=== PATIENT | male | born 1950 | race Caucasian/White ===

== ENCOUNTER → 2023-06-22 | Outpatient (CLI) | payer MEDICARE, SELFPAY ==
--- NOTE | 2023-06-22 12:00 | LES_PTH ---
PATIENT: JACKSON ANNA LOC: [facility] U#:[id number] AGE/SX: 73/M ROOM: RE06/22/[address]: KIRIT MARY MD : 1950 BED: DIS: 06/22/2023 SPEC #: [id number] RECD: 06/22/23 13:23 STATUS: AURELIA REIndy #: [id number] CHRISTY: 06/22/23 12:[address]: KIRIT MARY DEPT: SURGICAL PATHOLOGY RECD BY: Katja Bello ENTERED: 06/22/23 13:33 SP TYPE: Lesion OTHR DR: Dr. Triston Henry MD Tissues: Mandible, NOS Procedures: Special Stain Group I Surgery Specimen Level IV GMS Stain (control) HEADER OPERATION: Excisional biopsy of right lingual pedunculated lesion PRE-OP DIAGNOSIS: Right lingual lesion TISSUE SUBMITTED: Right lingual lesion (mandible) MICROSCOPIC DIAGNOSIS Right lingual lesion (mandible), excisional biopsy: A piece of squamous mucosa with pseudoepitheliomatous hyperplasia and mild chronic inflammation. Negative for malignancy. See comment. ALONA:lori 06/25/2023 COMMENT Special stain for fungi is negative for organisms; matched control is appropriate. MICROSCOPIC DESCRIPTION Slides are reviewed. GROSS DESCRIPTION Received in fixative is one container labeled with the patient's name and designated right lingual lesion. The specimen consists of a piece of hensley mucosal tissue measuring 0.5 x 0.2 x 0.1 cm. The specimen is totally submitted in one cassette. / ALONA:lori 06/22/2023 TC:5 CPT: 78737, 44366
== END | disposition home or self-care (01) ==
LOC: LABSPEC 13:29
PROVIDERS: PCP Family Medicine; Referring Provider Dentist Oral and Maxillofacial Surgery; Visit Provider Dentist Oral and Maxillofacial Surgery
DX: L98.9 Disorder of the skin and subcutaneous tissue, unspecified (principal)
CPT/HCPCS: 88305; 88312